=== PATIENT | male | born 1990 | race Caucasian/White ===

== ENCOUNTER 2017-05-15 19:22 | Emergency (ER) | payer OTHER ==
[~2017-05-15] VITALS: Ht 172.7 cm; Wt 99.8 kg
== END 2017-05-15 23:48 | disposition home or self-care (01) ==
LOC: ER 19:22
DX: B34.9 Viral infection, unspecified (principal)

== ENCOUNTER 2018-08-22 13:33 | Emergency (ER) | payer OTHER ==
[~2018-08-22] VITALS: Ht 175.3 cm; Wt 99.8 kg
== END 2018-08-22 19:00 | disposition home or self-care (01) ==
LOC: ER 13:33
DX: I88.0 Nonspecific mesenteric lymphadenitis (principal); R10.31 Right lower quadrant pain